=== PATIENT | male | born 1995 | race Caucasian/White ===

== ENCOUNTER 2018-05-25 03:38 | Emergency (ER) | payer MEDICAID, OTHER ==
[~2018-05-25] VITALS: Ht 180.3 cm; Wt 114.0 kg
[2018-05-25] MEDS ORDERED: SODIUM CHLORIDE 0.9% 1,000 ML IV ONE (04:30)
[2018-05-25] MEDS ORDERED: KETOROLAC 30MG/ML VIAL IV ONE (04:30)
[2018-05-25 05:50] VITALS: BP 148/74
== END 2018-05-25 06:55 | disposition home or self-care (01) ==
LOC: ER 06:45
DX: R51 Headache (principal); M25.562 Pain in left knee; M25.561 Pain in right knee; F17.200 Nicotine dependence, unspecified, uncomplicated; V43.52XA Car driver injured in collision with other type car in traffic accident, initial encounter; Y93.89 Activity, other specified; Y92.488 Other paved roadways as the place of occurrence of the external cause
CPT/HCPCS: 73562; 96374; 99285; J1885; J7030

== ENCOUNTER 2021-03-02 21:03 | Emergency (ER) | payer MEDICAID ==
[~2021-03-02] VITALS: Ht 180.3 cm; Wt 114.0 kg
[2021-03-02] MEDS ORDERED: HYDROCODONE/ACETAMINOPHEN 10/325MG TABLET PO ONE (22:15)
[2021-03-02] MEDS ORDERED: KETOROLAC 60MG/2ML VIAL IM ONE (22:15)
[2021-03-02 22:19] VITALS: BP 121/88
== END 2021-03-03 00:41 | disposition home or self-care (01) ==
LOC: ER 21:19
DX: S93.402A Sprain of unspecified ligament of left ankle, initial encounter (principal); Z90.89 Acquired absence of other organs; X58.XXXA Exposure to other specified factors, initial encounter; Y93.89 Activity, other specified; Y92.89 Other specified places as the place of occurrence of the external cause; Y99.8 Other external cause status
CPT/HCPCS: 73590; 73610; 96372; 99284; J1885